=== PATIENT | female | born 1975 | race Caucasian/White ===

== ENCOUNTER 2018-02-09 08:12 | Emergency (ER) | payer BC, OTHER ==
[~2018-02-09] VITALS: Ht 172.7 cm; Wt 104.3 kg
[2018-02-09] MEDS ORDERED: DIATRIZOATE MEGL/DIATRIZOA SOD 30 ML BTL PO ONE (08:38)
[2018-02-09 08:46] LABS: BASOPHILS # (AUTO) 0.1 (0.0-0.1); BASOPHILS % 0.6 % (0.0-1.0); EOSINOPHILS # (AUTO) 0.1 (0.0-0.4); HEMATOCRIT 38.8 % (34.2-44.1); HEMOGLOBIN 13.9 g/dL (12.0-16.0); LYMPHOCYTES # (AUTO) 1.2 (1.0-3.2); LYMPHOCYTES % 13.3 % (18.0-39.1); MEAN CORPUSCULAR HEMOGLOBIN 32.4 pg (28-32); MEAN CORPUSCULAR HGB CONC 35.8 g/dL (31-35); MEAN CORPUSCULAR VOLUME 90.4 fL (81-99); MONOCYTES # (AUTO) 0.6 (0.2-0.8); MONOCYTES % 6.4 % (4.4-11.3); NEUTROPHILS % 78.5 % (38.7-80.0); PLATELET COUNT 158 x10e3/uL (140-360); RED BLOOD COUNT 4.29 x10e6/uL (3.6-5.1); RED CELL DISTRIBUTION WIDTH 13.2 % (11.7-14.4)
[2018-02-09] MEDS ORDERED: KETOROLAC TROMETHAMINE 30 MG/ML VIAL IV STA (08:47)
[2018-02-09] MEDS ORDERED: HYOSCYAMINE SULFATE 0.5 MG/ML AMP IV ONE (09:00)
[2018-02-09] MEDS ORDERED: SODIUM CHLORIDE 0.9% 1000ML 1,000 ML IV ONE (09:00)
[2018-02-09 09:09] LABS: ALANINE AMINOTRANSFERASE 44 IU/L (0-55); ALBUMIN 4.1 g/dL (3.5-5.0); ALKALINE PHOSPHATASE 43 IU/L (40-150); BLOOD UREA NITROGEN 16 mg/dL (7-26); BUN/CREATININE RATIO 21 (6-25); CARBON DIOXIDE 21 mmol/L (22-29); CHLORIDE 106 mmol/L (98-107); CREATININE, SERUM 0.77 mg/dL (0.57-1.11); EST GLOMERULAR FILTRATION RATE > 60 ML/MIN (60-); GLUCOSE 115 mg/dL (74-118); SODIUM 134 mmol/L (136-145)
[2018-02-09 09:56] LABS: BILIRUBIN,URINE NEGATIVE (NEGATIVE); COLOR,URINE YELLOW (YELLOW); KETONES,URINE NEGATIVE (NEGATIVE); LEUKOCYTE ESTERASE ,URINE NEGATIVE (NEGATIVE); NITRITE,URINE NEGATIVE (NEGATIVE); PROTEIN,URINE DIPSTICK NEGATIVE (NEGATIVE); URINE UROBILINOGEN 0.2 mg/dL (0.2 - 1)
[2018-02-09 10:15] LABS: CLARITY,URINE CLEAR (CLEAR)
[2018-02-09 10:19] LABS: BACTERIA,URINE FEW /HPF; EPITHELIAL CELLS,URINE FEW /LPF; RBC,URINE 0-5 /HPF (0-5); WBC,URINE (MAN) 0-5 /HPF (0-5)
--- NOTE | 2018-02-09 11:42 | Diagnostic Imaging Report ---
PROCEDURE: CT ABDOMEN AND PELVIS WITH CONTRAST TECHNIQUE: The abdomen and pelvis were scanned utilizing a multidetector helical scanner from the diaphragm to the lesser trochanter after the IV administration of 100 cc of Isovue 370 and the oral administration of Gastroview. Coronal and sagittal multiplanar reformations were obtained. COMPARISON: CT abdomen and pelvis 09/19/2015. INDICATIONS: LEFT LOWER QUADRANT PAIN FINDINGS: LOWER THORAX: Normal. HEPATOBILIARY: No focal hepatic lesions. No biliary ductal dilatation. SPLEEN: No splenomegaly. PANCREAS: No focal masses or ductal dilatation. ADRENALS: No adrenal nodules. KIDNEYS/URETERS: No hydronephrosis, stones, or solid mass lesions. PELVIC ORGANS/BLADDER: Normal uterus and ovaries. Normal urinary bladder. PERITONEUM / RETROPERITONEUM: No free air or fluid. LYMPH NODES: No lymphadenopathy. VESSELS: Unremarkable. GI TRACT: Multiple diverticuli are present in the descending and sigmoid colon. Short segment bowel wall thickening is present in the proximal sigmoid colon with adjacent soft tissue inflammatory changes, series 2 image 75. Normal appendix. Moderate amount of retained feces limits intraluminal evaluation of the colon. Normal small bowel and stomach. BONES AND SOFT TISSUES: Unremarkable. IMPRESSION: Acute diverticulitis of the sigmoid colon. No evidence of obstruction, perforation, or abscess formation. Dictated by: Yusef Arreaga M.D. on 02/09/2018 at 11:43 Electronically approved by: Yusef Arreaga M.D. on 02/09/2018 at 11:43
[2018-02-09] MEDS ORDERED: CIPROFLOXACIN 500 MG TAB PO ONE (11:45)
[2018-02-09] MEDS ORDERED: METRONIDAZOLE 500 MG TAB PO ONE (11:45)
[2018-02-09 12:08] VITALS: BP 113/70
[2018-02-09] MEDS ORDERED: IOPAMIDOL 370 MG/ML 200 ML INFUS..BTL INJ ONE (15:19)
[2018-02-09] MEDS ORDERED: SODIUM CHLORIDE 0.9% 50ML 50 ML ONE (15:19)
== END 2018-02-09 12:21 | disposition home or self-care (01) ==
LOC: ER 08:12
DX: R10.32 Left lower quadrant pain (principal); M54.5 Low back pain; K59.00 Constipation, unspecified; K57.32 Diverticulitis of large intestine without perforation or abscess without bleeding
CPT/HCPCS: 36415; 74177; 80053; 81001; 84702; 85025; 99284; J1885; J1980; J7030; Q9967

== ENCOUNTER 2021-09-25 18:43 | Inpatient (IN) | payer BC ==
[~2021-09-25] VITALS: Ht 170.2 cm; Wt 88.5 kg
[2021-09-25 20:00] VITALS: BP 143/92
[2021-09-25] MEDS ORDERED: ACETAMINOPHEN 325 MG TAB PO PRN (21:00)
[2021-09-25] MEDS: TRAZODONE HCL 50 MG TAB PO PRN (21:54)
[2021-09-25] MEDS: PIPERACILLIN/TAZOBACTAM 3.375 GM in SODIUM CHLORIDE 0.9% 50ML 50 ML IV SCH (21:55)
[2021-09-25] MEDS: DEXTROSE 5%/0.9% SOD CHL 1,000 ML IV SCH (21:55)
[2021-09-25 23:08] VITALS: BP 143/92
[2021-09-26] VITALS (7 sets, daily range): BP systolic 89–123; BP diastolic 42–74
[2021-09-26] MEDS ORDERED: METFORMIN HCL500 MG PO (01:36)
[2021-09-26] MEDS ORDERED: FARXIGA10 MG PO (01:36)
[2021-09-26] MEDS ORDERED: PREDNISONE10 MG PO (01:41)
[2021-09-26] MEDS ORDERED: TRAZODONE HCL50 MG PO (01:41)
[2021-09-26] MEDS ORDERED: IMURAN50 MG PO (01:41)
[2021-09-26] MEDS ORDERED: MULTI-VITAMIN1 EACH PO (01:41)
[2021-09-26 05:06] LABS: BASOPHILS % 0.7 % (0.0-1.0); EOSINOPHILS # (AUTO) 0.1 (0.0-0.4); HEMOGLOBIN 11.5 g/dL (12.0-16.0); LYMPHOCYTES # (AUTO) 1.4 (1.0-3.2); LYMPHOCYTES % 34.5 % (18.0-39.1); MEAN CORPUSCULAR HEMOGLOBIN 31.5 pg (28-32); MEAN CORPUSCULAR HGB CONC 33.8 g/dL (31-35); MEAN CORPUSCULAR VOLUME 93.2 fL (81-99); MONOCYTES # (AUTO) 0.3 (0.2-0.8); MONOCYTES % 8.3 % (4.4-11.3); NEUTROPHILS # (AUTO) 2.2 (2.1-6.9); PLATELET COUNT 134 x10e3/uL (140-360); RED BLOOD COUNT 3.65 x10e6/uL (3.6-5.1)
[2021-09-26 05:33] LABS: ANION GAP 11.9 mmol/L (8-16); CALCIUM 8.3 mg/dL (8.4-10.2); CREATININE, SERUM 0.64 mg/dL (0.57-1.11); POTASSIUM 3.9 mmol/L (3.5-5.1)
[2021-09-26] MEDS: PIPERACILLIN/TAZOBACTAM 3.375 GM in SODIUM CHLORIDE 0.9% 50ML 50 ML IV SCH ×6 (06:05→23:33)
[2021-09-26] MEDS ORDERED: TRAZODONE HCL 50 MG TAB PO PRN (08:30)
[2021-09-26] MEDS: AZATHIOPRINE 50 MG TAB PO SCH (09:00)
[2021-09-26] MEDS: PREDNISONE 10 MG TAB PO SCH (09:00)
[2021-09-26] MEDS: MULTIVITAMINS/MINERALS TAB PO SCH (09:00)
[2021-09-26] MEDS: DEXTROSE 5%/0.9% SOD CHL 1,000 ML IV SCH ×2 (09:30→19:57)
[2021-09-26] MEDS: Morphine 2mg Syringe 2 MG/ML SYR IV PRN ×2 (14:51→20:34)
[2021-09-26] MEDS: METRONIDAZOLE 500MG/NS 100ML 100 ML IV SCH (21:43)
[2021-09-26] MEDS ORDERED: SODIUM CHLORIDE 0.9% 250ML 250 ML ONE (21:58)
[2021-09-27] VITALS (8 sets, daily range): BP systolic 96–122; BP diastolic 60–78
[2021-09-27 02:19] LABS: % IRON SATURATION 36 % (15-50); IRON 84 ug/dL (50-170); TOTAL IRON BINDING CAPACITY 232 ug/dL (261-478); TRANSFERRIN 166 mg/dL (180-382)
[2021-09-27] MEDS: METRONIDAZOLE 500MG/NS 100ML 100 ML IV SCH (04:51)
[2021-09-27 04:56] LABS: BASOPHILS % 0.6 % (0.0-1.0); EOSINOPHILS # (AUTO) 0.1 (0.0-0.4); EOSINOPHILS % 1.2 % (0.0-6.0); HEMATOCRIT 32.1 % (34.2-44.1); HEMOGLOBIN 10.8 g/dL (12.0-16.0); LYMPHOCYTES # (AUTO) 1.1 (1.0-3.2); MEAN CORPUSCULAR HEMOGLOBIN 31.3 pg (28-32); MEAN CORPUSCULAR HGB CONC 33.6 g/dL (31-35); MONOCYTES # (AUTO) 0.4 (0.2-0.8); MONOCYTES % 7.7 % (4.4-11.3); NEUTROPHILS # (AUTO) 3.2 (2.1-6.9); NEUTROPHILS % 67.3 % (38.7-80.0); PLATELET COUNT 141 x10e3/uL (140-360); RED BLOOD COUNT 3.45 x10e6/uL (3.6-5.1); RED CELL DISTRIBUTION WIDTH 13.4 % (11.7-14.4)
[2021-09-27] MEDS: DEXTROSE 5%/0.9% SOD CHL 1,000 ML IV SCH ×2 (04:58→12:27)
[2021-09-27 05:26] LABS: ALBUMIN 3.2 g/dL (3.5-5.0); ANION GAP 9.5 mmol/L (8-16); CALCIUM 8.3 mg/dL (8.4-10.2); CREATININE, SERUM 0.66 mg/dL (0.57-1.11); POTASSIUM 3.5 mmol/L (3.5-5.1)
[2021-09-27] MEDS: PIPERACILLIN/TAZOBACTAM 3.375 GM in SODIUM CHLORIDE 0.9% 50ML 50 ML IV SCH (06:05)
[2021-09-27] MEDS: MULTIVITAMINS/MINERALS TAB PO SCH (08:56)
[2021-09-27] MEDS: AZATHIOPRINE 50 MG TAB PO SCH (08:56)
[2021-09-27] MEDS: PREDNISONE 10 MG TAB PO SCH (08:56)
[2021-09-27] MEDS: AMPICILLIN SOD/SULBACTAM 3GM 100 ML IV SCH ×2 (12:27→16:52)
[2021-09-27] MEDS: Morphine 2mg Syringe 2 MG/ML SYR IV PRN (15:46)
[2021-09-27] MEDS: TRAZODONE HCL 50 MG TAB PO PRN (22:19)
[2021-09-28] VITALS (7 sets, daily range): BP systolic 98–122; BP diastolic 58–79
[2021-09-28] MEDS: DEXTROSE 5%/0.9% SOD CHL 1,000 ML IV SCH ×4 (01:30→20:48)
[2021-09-28] MEDS: AMPICILLIN SOD/SULBACTAM 3GM 100 ML IV SCH ×4 (01:30→18:17)
[2021-09-28] MEDS: MULTIVITAMINS/MINERALS TAB PO SCH (09:13)
[2021-09-28] MEDS: PREDNISONE 10 MG TAB PO SCH (09:13)
[2021-09-28] MEDS: AZATHIOPRINE 50 MG TAB PO SCH (09:13)
[2021-09-28] MEDS: CYANOCOBALAMIN INJ 1,000 MCG/ML VIAL IM SCH (09:13)
[2021-09-28] MEDS: CLINDAMYCIN 600MG / 50ML 50 ML IV SCH ×2 (13:54→21:36)
[2021-09-28] MEDS ORDERED: SODIUM CHLORIDE 0.9% 250ML 250 ML ONE (21:35)
[2021-09-28] MEDS ORDERED: ONDANSETRON HCL INJ 2MG/ML 2ML 2 MG/ML VIAL IV PRN (21:45)
[2021-09-29] VITALS (9 sets, daily range): BP systolic 96–143; BP diastolic 64–83
[2021-09-29] MEDS: Morphine 2mg Syringe 2 MG/ML SYR IV PRN (01:53)
[2021-09-29] MEDS: DEXTROSE 5%/0.9% SOD CHL 1,000 ML IV SCH ×3 (04:51→20:56)
[2021-09-29] MEDS: CLINDAMYCIN 600MG / 50ML 50 ML IV SCH ×3 (05:48→22:02)
[2021-09-29] MEDS: AMPICILLIN SOD/SULBACTAM 3GM 100 ML IV SCH ×4 (06:20→16:43)
[2021-09-29] MEDS: AZATHIOPRINE 50 MG TAB PO SCH (08:55)
[2021-09-29] MEDS: PREDNISONE 10 MG TAB PO SCH (08:55)
[2021-09-29] MEDS: MULTIVITAMINS/MINERALS TAB PO SCH (08:55)
[2021-09-29] MEDS: CYANOCOBALAMIN INJ 1,000 MCG/ML VIAL IM SCH (08:57)
[2021-09-30] VITALS (7 sets, daily range): BP systolic 101–157; BP diastolic 62–86
[2021-09-30] MEDS: DEXTROSE 5%/0.9% SOD CHL 1,000 ML IV SCH ×2 (03:33→13:25)
[2021-09-30] MEDS: CLINDAMYCIN 600MG / 50ML 50 ML IV SCH (05:25)
[2021-09-30] MEDS: AMPICILLIN SOD/SULBACTAM 3GM 100 ML IV SCH ×3 (06:30→12:00)
[2021-09-30] MEDS ORDERED: ALBUTEROL SULF 0.083% NEB SOLN 3 ML NEB NEB PRN (09:30)
[2021-09-30] MEDS ORDERED: CHOLESTYRAMINE 4 GM PACKET PO PRN (09:30)
[2021-09-30] MEDS: CYANOCOBALAMIN INJ 1,000 MCG/ML VIAL IM SCH (09:39)
[2021-09-30] MEDS: PREDNISONE 10 MG TAB PO SCH (09:40)
[2021-09-30] MEDS: AZATHIOPRINE 50 MG TAB PO SCH (09:40)
[2021-09-30] MEDS: MULTIVITAMINS/MINERALS TAB PO SCH (09:40)
[2021-09-30] MEDS ORDERED: LOPERAMIDE HCL 2 MG CAP PO PRN (09:45)
[2021-09-30 10:35] LABS: ANION GAP 11.2 mmol/L (8-16); CARBON DIOXIDE 23 mmol/L (22-29); CHLORIDE 112 mmol/L (98-107); CREATININE, SERUM 0.65 mg/dL (0.57-1.11); EST GLOMERULAR FILTRATION RATE 98 ML/MIN (60-); GLUCOSE 119 mg/dL (74-118); POTASSIUM 3.2 mmol/L (3.5-5.1); SODIUM 143 mmol/L (136-145)
[2021-09-30 10:39] LABS: BLOOD UREA NITROGEN < 5 mg/dL (7-26); BUN/CREATININE RATIO 8 (6-25)
[2021-09-30] MEDS ORDERED: BISMUTH SUBSALICYLATE 262 MG TAB PO PRN (15:00)
[2021-09-30] MEDS ORDERED: SODIUM CHLORIDE 0.9% 50ML 50 ML ONE (16:13)
[2021-09-30] MEDS ORDERED: IOPAMIDOL 370 MG/ML 200 ML INFUS..BTL INJ ONE (16:13)
[2021-09-30] MEDS: ENOXAPARIN SOD INJ 40 MG/0.4 ML SYR SC SCH (16:36)
[2021-09-30] MEDS: MEROPENEM 1 GM in SODIUM CHLORIDE 0.9% 100 ML IV SCH (17:32)
[2021-09-30] MEDS: FUROSEMIDE INJ 10 MG/ML 2 ML VIAL IV SCH (21:02)
[2021-10-01] VITALS (8 sets, daily range): BP systolic 116–139; BP diastolic 77–101
[2021-10-01] MEDS: MEROPENEM 1 GM in SODIUM CHLORIDE 0.9% 100 ML IV SCH ×3 (02:14→20:01)
[2021-10-01 05:46] LABS: ANION GAP 11.8 mmol/L (8-16); CALCIUM 8.3 mg/dL (8.4-10.2); CARBON DIOXIDE 24 mmol/L (22-29); CHLORIDE 110 mmol/L (98-107); CREATININE, SERUM 0.62 mg/dL (0.57-1.11); EST GLOMERULAR FILTRATION RATE 104 ML/MIN (60-); GLUCOSE 76 mg/dL (74-118); MAGNESIUM 1.6 MG/DL (1.3-2.1); SODIUM 143 mmol/L (136-145)
[2021-10-01 06:09] LABS: BLOOD UREA NITROGEN < 2 mg/dL (7-26); BUN/CREATININE RATIO 3 (6-25); POTASSIUM 2.8 mmol/L (3.5-5.1)
[2021-10-01] MEDS ORDERED: POTASSIUM CHLORIDE 20 MEQ TAB CR PO ONE ×2 (07:00→07:30)
[2021-10-01] MEDS: CYANOCOBALAMIN INJ 1,000 MCG/ML VIAL IM SCH (08:01)
[2021-10-01] MEDS: FUROSEMIDE INJ 10 MG/ML 2 ML VIAL IV SCH (08:01)
[2021-10-01] MEDS: MULTIVITAMINS/MINERALS TAB PO SCH (08:02)
[2021-10-01] MEDS: AZATHIOPRINE 50 MG TAB PO SCH (08:02)
[2021-10-01] MEDS: PREDNISONE 10 MG TAB PO SCH (08:02)
[2021-10-01] MEDS ORDERED: ONDANSETRON HCL 4 MG ORAL DISINTEGRATING TAB PO PRN (09:30)
[2021-10-01] MEDS: ENOXAPARIN SOD INJ 40 MG/0.4 ML SYR SC SCH (18:28)
[2021-10-02 00:06] VITALS: BP 121/76
[2021-10-02 00:09] VITALS: BP 121/76
[2021-10-02] MEDS: MEROPENEM 1 GM in SODIUM CHLORIDE 0.9% 100 ML IV SCH ×2 (02:07→08:49)
[2021-10-02 06:09] VITALS: BP 136/85
[2021-10-02 07:24] VITALS: BP 139/81
[2021-10-02] MEDS: CYANOCOBALAMIN INJ 1,000 MCG/ML VIAL IM SCH (08:48)
[2021-10-02] MEDS: PREDNISONE 10 MG TAB PO SCH (08:48)
[2021-10-02] MEDS: MULTIVITAMINS/MINERALS TAB PO SCH (08:48)
[2021-10-02] MEDS: AZATHIOPRINE 50 MG TAB PO SCH (08:49)
[2021-10-02 09:59] VITALS: BP 139/81
[2021-10-02 11:28] VITALS: BP 135/83
[2021-10-03] MEDS ORDERED: (Dapagliflozin Propanediol (Farxiga) 10 MG) PO SCH (09:00)
[2021-10-03] MEDS ORDERED: METFORMIN HCL 500 MG TAB PO SCH (09:00)
== END 2021-10-02 15:09 | disposition home or self-care (01) | DRG 391 ==
LOC: MED/SURG2 19:56
PROVIDERS: ADMIT Internal Medicine; ATTEND Internal Medicine
PROC: 02HV33Z Insertion of Infusion Device into Superior Vena Cava, Percutaneous Approach (ICD-10-PCS; principal; 2021-09-25)
DX: K57.80 Diverticulitis of intestine, part unspecified, with perforation and abscess without bleeding (principal); I50.31 Acute diastolic (congestive) heart failure; K83.09 Other cholangitis; M32.9 Systemic lupus erythematosus, unspecified; K75.4 Autoimmune hepatitis; Z20.822 Contact with and (suspected) exposure to COVID-19; I11.0 Hypertensive heart disease with heart failure; E11.9 Type 2 diabetes mellitus without complications; E11.65 Type 2 diabetes mellitus with hyperglycemia; R19.7 Diarrhea, unspecified
CPT/HCPCS: 36415; 36568; 71260; 80048; 80053; 82607; 82746; 82948; 83540; 83735; 84132; 84466; 84484; 85025; 85045; 87493; 93005; 93306; 94799; 96361; J0295; J1650; J1940; J2185; J2270; J2405; J2543; J3420; J7042; J7050; J7512; Q9967; U0002

== ENCOUNTER → 2021-10-14 | Outpatient (CLI) | payer BC ==
[~2021-10-14] MED LIST: FARXIGA10 MG PO; IMURAN50 MG PO; METFORMIN HCL500 MG PO; MULTI-VITAMIN1 EACH PO; PREDNISONE10 MG PO; TRAZODONE HCL50 MG PO
== END ==
LOC: DX 11:58
PROVIDERS: ATTEND Internal Medicine Infectious Disease
DX: K57.92 Diverticulitis of intestine, part unspecified, without perforation or abscess without bleeding (principal)
CPT/HCPCS: 36569; 71045

== ENCOUNTER 2022-02-16 08:30 | Inpatient (IN) | payer BC, OTHER ==
[~2022-02-16] VITALS: Ht 170.2 cm; Wt 91.2 kg
[2022-02-16] MEDS ORDERED: ONDANSETRON HCL INJ 2MG/ML 2ML 2 MG/ML VIAL IV STA (08:34)
[2022-02-16] MEDS ORDERED: SODIUM CHLORIDE 0.9% 1000ML 1,000 ML IV STA (08:34)
[2022-02-16] MEDS ORDERED: Morphine 4mg Syringe 4 MG/ML INJ IV ONE (08:45)
[2022-02-16 08:59] LABS: BASOPHILS % 0.4 % (0.0-1.0); EOSINOPHILS # (AUTO) 0.1 (0.0-0.4); EOSINOPHILS % 1.1 % (0.0-6.0); HEMATOCRIT 41.1 % (34.2-44.1); HEMOGLOBIN 14.1 g/dL (12.0-16.0); LYMPHOCYTES # (AUTO) 1.1 (1.0-3.2); LYMPHOCYTES % 12.5 % (18.0-39.1); MEAN CORPUSCULAR HEMOGLOBIN 30.9 pg (28-32); MEAN CORPUSCULAR HGB CONC 34.3 g/dL (31-35); MEAN CORPUSCULAR VOLUME 90.1 fL (81-99); MONOCYTES # (AUTO) 0.8 (0.2-0.8); MONOCYTES % 8.5 % (4.4-11.3); NEUTROPHILS # (AUTO) 6.9 (2.1-6.9); NEUTROPHILS % 77.3 % (38.7-80.0); PLATELET COUNT 155 x10e3/uL (140-360); RED BLOOD COUNT 4.56 x10e6/uL (3.6-5.1); RED CELL DISTRIBUTION WIDTH 13.3 % (11.7-14.4)
[2022-02-16 09:07] LABS: CLARITY,URINE CLEAR (CLEAR); COLOR,URINE YELLOW (YELLOW); KETONES,URINE NEGATIVE (NEGATIVE); LEUKOCYTE ESTERASE ,URINE NEGATIVE (NEGATIVE); NITRITE,URINE NEGATIVE (NEGATIVE); PROTEIN,URINE DIPSTICK NEGATIVE (NEGATIVE); URINE UROBILINOGEN 0.2 mg/dL (0.2 - 1)
[2022-02-16 09:15] LABS: EPITHELIAL CELLS,URINE RARE /LPF; RBC,URINE 0-5 /HPF (0-5); WBC,URINE (MAN) 0-5 /HPF (0-5)
[2022-02-16 09:19] LABS: ALBUMIN 4.2 g/dL (3.5-5.0); ANION GAP 11.7 mmol/L (8-16); CALCIUM 9.2 mg/dL (8.4-10.2); CREATININE, SERUM 0.79 mg/dL (0.57-1.11); POTASSIUM 3.7 mmol/L (3.5-5.1)
[2022-02-16] MEDS ORDERED: IOPAMIDOL 370 MG/ML 200 ML INFUS..BTL INJ ONE (09:49)
[2022-02-16] MEDS ORDERED: SODIUM CHLORIDE 0.9% 50ML 50 ML ONE (09:49)
[2022-02-16] MEDS ORDERED: Morphine 4mg Syringe 4 MG/ML INJ IV PRN (10:45)
[2022-02-16] MEDS: SODIUM CHLORIDE 0.9% 1000ML 1,000 ML IV SCH ×2 (11:16→20:04)
[2022-02-16] MEDS: ONDANSETRON HCL INJ 2MG/ML 2ML 2 MG/ML VIAL IV PRN ×3 (11:16→20:51)
[2022-02-16] MEDS ORDERED: SODIUM CHLORIDE 0.9% IV ONE (11:30)
[2022-02-16] MEDS ORDERED: MEROPENEM IV ONE (11:30)
[2022-02-16] MEDS ORDERED: MEROPENEM 1 GM VIAL ONE (11:51)
[2022-02-16] MEDS ORDERED: SODIUM CHLORIDE 0.9% 100 ML ONE (11:53)
[2022-02-16] MEDS ORDERED: PROBIOTIC & AC1 EACH PO (12:31)
[2022-02-16] MEDS: HYDROMORPHONE 1MG/1ML INJ IV PRN ×3 (12:37→20:51)
[2022-02-16] MEDS ORDERED: TRAZODONE HCL 50 MG TAB PO PRN (12:45)
[2022-02-16 15:35] VITALS: BP 97/55
[2022-02-16] MEDS: METRONIDAZOLE 500MG/NS 100ML 100 ML IV SCH ×2 (17:03→23:36)
[2022-02-16 20:00] VITALS: BP 116/75
[2022-02-16] MEDS: CEFEPIME 1 GM in SODIUM CHLORIDE 0.9% 50ML 50 ML IV SCH (20:04)
[2022-02-16 21:01] VITALS: BP 116/75
[2022-02-17] VITALS (9 sets, daily range): BP systolic 99–110; BP diastolic 50–77
[2022-02-17] MEDS: ONDANSETRON HCL INJ 2MG/ML 2ML 2 MG/ML VIAL IV PRN ×3 (00:54→09:00)
[2022-02-17] MEDS: HYDROMORPHONE 1MG/1ML INJ IV PRN ×6 (00:54→22:17)
[2022-02-17] MEDS: ACETAMINOPHEN 325 MG TAB PO PRN (00:55)
[2022-02-17] MEDS: SODIUM CHLORIDE 0.9% 1000ML 1,000 ML IV SCH ×3 (03:56→18:24)
[2022-02-17] MEDS: METRONIDAZOLE 500MG/NS 100ML 100 ML IV SCH ×4 (05:28→23:50)
[2022-02-17 05:42] LABS: BASOPHILS % 0.4 % (0.0-1.0); EOSINOPHILS # (AUTO) 0.1 (0.0-0.4); EOSINOPHILS % 0.8 % (0.0-6.0); HEMATOCRIT 34.3 % (34.2-44.1); HEMOGLOBIN 11.4 g/dL (12.0-16.0); LYMPHOCYTES # (AUTO) 1.2 (1.0-3.2); LYMPHOCYTES % 15.7 % (18.0-39.1); MEAN CORPUSCULAR HEMOGLOBIN 31.1 pg (28-32); MEAN CORPUSCULAR HGB CONC 33.2 g/dL (31-35); MEAN CORPUSCULAR VOLUME 93.5 fL (81-99); MONOCYTES # (AUTO) 0.6 (0.2-0.8); MONOCYTES % 7.9 % (4.4-11.3); NEUTROPHILS # (AUTO) 5.5 (2.1-6.9); NEUTROPHILS % 74.9 % (38.7-80.0); PLATELET COUNT 117 x10e3/uL (140-360); RED BLOOD COUNT 3.67 x10e6/uL (3.6-5.1); RED CELL DISTRIBUTION WIDTH 13.3 % (11.7-14.4)
[2022-02-17 06:11] LABS: ALBUMIN 3.2 g/dL (3.5-5.0); ANION GAP 10.6 mmol/L (8-16); CALCIUM 8.2 mg/dL (8.4-10.2); CREATININE, SERUM 0.69 mg/dL (0.57-1.11); POTASSIUM 3.6 mmol/L (3.5-5.1)
[2022-02-17] MEDS: CEFEPIME 1 GM in SODIUM CHLORIDE 0.9% 50ML 50 ML IV SCH ×2 (09:00→21:13)
[2022-02-17] MEDS: PREDNISONE 5 MG TAB PO SCH (11:11)
[2022-02-17] MEDS: AZATHIOPRINE 50 MG TAB PO SCH (11:11)
[2022-02-17] MEDS: MULTIVITAMINS/MINERALS TAB PO SCH (11:11)
[2022-02-17] MEDS: (Dapagliflozin Propanediol (Farxiga) 10 MG) PO SCH (11:11)
[2022-02-18] VITALS (8 sets, daily range): BP systolic 110–112; BP diastolic 64–75
[2022-02-18] MEDS: ONDANSETRON HCL INJ 2MG/ML 2ML 2 MG/ML VIAL IV PRN ×4 (03:05→22:59)
[2022-02-18] MEDS: HYDROMORPHONE 1MG/1ML INJ IV PRN ×5 (03:05→22:59)
[2022-02-18] MEDS: ACETAMINOPHEN 325 MG TAB PO PRN (04:57)
[2022-02-18 05:02] LABS: BASOPHILS % 0.4 % (0.0-1.0); EOSINOPHILS % 0.4 % (0.0-6.0); HEMATOCRIT 30.1 % (34.2-44.1); HEMOGLOBIN 10.2 g/dL (12.0-16.0); LYMPHOCYTES # (AUTO) 1.1 (1.0-3.2); LYMPHOCYTES % 15.5 % (18.0-39.1); MEAN CORPUSCULAR HGB CONC 33.9 g/dL (31-35); MEAN CORPUSCULAR VOLUME 91.5 fL (81-99); MONOCYTES # (AUTO) 0.5 (0.2-0.8); NEUTROPHILS # (AUTO) 5.3 (2.1-6.9); NEUTROPHILS % 76.4 % (38.7-80.0); PLATELET COUNT 130 x10e3/uL (140-360); RED BLOOD COUNT 3.29 x10e6/uL (3.6-5.1); RED CELL DISTRIBUTION WIDTH 13.1 % (11.7-14.4)
[2022-02-18 05:22] LABS: ALBUMIN/GLOBULIN RATIO 0.9 (0.8-2.0); ANION GAP 10.8 mmol/L (8-16); CREATININE, SERUM 0.66 mg/dL (0.57-1.11); POTASSIUM 3.8 mmol/L (3.5-5.1)
[2022-02-18] MEDS: METRONIDAZOLE 500MG/NS 100ML 100 ML IV SCH ×4 (06:35→23:59)
[2022-02-18] MEDS: SODIUM CHLORIDE 0.9% 1000ML 1,000 ML IV SCH ×2 (06:35→16:59)
[2022-02-18] MEDS: (Dapagliflozin Propanediol (Farxiga) 10 MG) PO SCH (09:00)
[2022-02-18] MEDS: AZATHIOPRINE 50 MG TAB PO SCH (09:08)
[2022-02-18] MEDS: CEFEPIME 1 GM in SODIUM CHLORIDE 0.9% 50ML 50 ML IV SCH ×2 (09:08→21:52)
[2022-02-18] MEDS: PREDNISONE 5 MG TAB PO SCH (09:09)
[2022-02-18] MEDS: MULTIVITAMINS/MINERALS TAB PO SCH (09:09)
[2022-02-18] MEDS: DOCUSATE SODIUM 100 MG CAP PO SCH (18:19)
[2022-02-19 01:11] LABS: % IRON SATURATION 19 % (15-50); IRON 37 ug/dL (50-170); TOTAL IRON BINDING CAPACITY 195 ug/dL (261-478); TRANSFERRIN 139 mg/dL (180-382)
[2022-02-19] MEDS: SODIUM CHLORIDE 0.9% 1000ML 1,000 ML IV SCH ×3 (04:01→22:00)
[2022-02-19 04:30] VITALS: BP 122/79
[2022-02-19 04:56] LABS: BASOPHILS % 0.5 % (0.0-1.0); EOSINOPHILS # (AUTO) 0.1 (0.0-0.4); EOSINOPHILS % 1.8 % (0.0-6.0); HEMATOCRIT 30.3 % (34.2-44.1); HEMOGLOBIN 10.2 g/dL (12.0-16.0); LYMPHOCYTES # (AUTO) 1.2 (1.0-3.2); LYMPHOCYTES % 20.8 % (18.0-39.1); MEAN CORPUSCULAR HGB CONC 33.7 g/dL (31-35); MEAN CORPUSCULAR VOLUME 92.1 fL (81-99); MONOCYTES # (AUTO) 0.4 (0.2-0.8); MONOCYTES % 7.5 % (4.4-11.3); NEUTROPHILS # (AUTO) 3.9 (2.1-6.9); NEUTROPHILS % 69.2 % (38.7-80.0); PLATELET COUNT 135 x10e3/uL (140-360); RED BLOOD COUNT 3.29 x10e6/uL (3.6-5.1); RED CELL DISTRIBUTION WIDTH 13.1 % (11.7-14.4)
[2022-02-19] MEDS: HYDROMORPHONE 1MG/1ML INJ IV PRN ×3 (05:19→19:51)
[2022-02-19] MEDS: ONDANSETRON HCL INJ 2MG/ML 2ML 2 MG/ML VIAL IV PRN ×3 (05:19→19:51)
[2022-02-19 05:25] LABS: ALANINE AMINOTRANSFERASE 14 IU/L (0-55); ALBUMIN 3.1 g/dL (3.5-5.0); ALBUMIN/GLOBULIN RATIO 0.9 (0.8-2.0); ALKALINE PHOSPHATASE 37 IU/L (40-150); ANION GAP 8.6 mmol/L (8-16); BLOOD UREA NITROGEN < 5 mg/dL (7-26); CARBON DIOXIDE 26 mmol/L (22-29); CHLORIDE 109 mmol/L (98-107); CREATININE, SERUM 0.64 mg/dL (0.57-1.11); EST GLOMERULAR FILTRATION RATE 100 ML/MIN (60-); GLUCOSE 94 mg/dL (74-118); POTASSIUM 3.6 mmol/L (3.5-5.1); SODIUM 140 mmol/L (136-145)
[2022-02-19 05:27] LABS: BUN/CREATININE RATIO 8 (6-25)
[2022-02-19] MEDS: METRONIDAZOLE 500MG/NS 100ML 100 ML IV SCH ×4 (05:29→23:59)
[2022-02-19] MEDS: ACETAMINOPHEN 325 MG TAB PO PRN (05:29)
[2022-02-19] MEDS: AZATHIOPRINE 50 MG TAB PO SCH (08:42)
[2022-02-19] MEDS: DOCUSATE SODIUM 100 MG CAP PO SCH ×2 (08:42→17:00)
[2022-02-19] MEDS: CEFEPIME 1 GM in SODIUM CHLORIDE 0.9% 50ML 50 ML IV SCH ×2 (08:42→22:00)
[2022-02-19] MEDS: PREDNISONE 5 MG TAB PO SCH (08:42)
[2022-02-19] MEDS: MULTIVITAMINS/MINERALS TAB PO SCH (08:42)
[2022-02-19] MEDS: (Dapagliflozin Propanediol (Farxiga) 10 MG) PO SCH (09:00)
[2022-02-19 09:19] VITALS: BP 122/79
[2022-02-19] MEDS ORDERED: SODIUM CHLORIDE 0.9% 50ML 50 ML ONE (14:36)
[2022-02-19] MEDS ORDERED: IOPAMIDOL 370 MG/ML 200 ML INFUS..BTL INJ ONE (14:36)
[2022-02-19] MEDS ORDERED: DIATRIZOATE MEGL/DIATRIZOA SOD 30 ML BTL PO ONE (14:36)
[2022-02-19 20:00] VITALS: BP 117/80
[2022-02-19 21:00] VITALS: BP 117/80
[2022-02-20] VITALS (8 sets, daily range): BP systolic 102–124; BP diastolic 66–87
[2022-02-20] MEDS: ONDANSETRON HCL INJ 2MG/ML 2ML 2 MG/ML VIAL IV PRN ×5 (01:00→21:00)
[2022-02-20] MEDS: HYDROMORPHONE 1MG/1ML INJ IV PRN ×5 (01:00→21:00)
[2022-02-20] MEDS: ACETAMINOPHEN 325 MG TAB PO PRN (04:35)
[2022-02-20 04:58] LABS: BASOPHILS % 0.6 % (0.0-1.0); EOSINOPHILS # (AUTO) 0.1 (0.0-0.4); HEMATOCRIT 29.7 % (34.2-44.1); LYMPHOCYTES # (AUTO) 0.8 (1.0-3.2); LYMPHOCYTES % 16.3 % (18.0-39.1); MEAN CORPUSCULAR HEMOGLOBIN 30.9 pg (28-32); MEAN CORPUSCULAR HGB CONC 33.7 g/dL (31-35); MEAN CORPUSCULAR VOLUME 91.7 fL (81-99); MONOCYTES # (AUTO) 0.4 (0.2-0.8); MONOCYTES % 7.6 % (4.4-11.3); NEUTROPHILS # (AUTO) 3.7 (2.1-6.9); NEUTROPHILS % 73.5 % (38.7-80.0); PLATELET COUNT 127 x10e3/uL (140-360); RED BLOOD COUNT 3.24 x10e6/uL (3.6-5.1); RED CELL DISTRIBUTION WIDTH 12.9 % (11.7-14.4)
[2022-02-20 05:18] LABS: ALANINE AMINOTRANSFERASE 13 IU/L (0-55); ALBUMIN 2.9 g/dL (3.5-5.0); ALBUMIN/GLOBULIN RATIO 0.9 (0.8-2.0); ALKALINE PHOSPHATASE 33 IU/L (40-150); ANION GAP 10.3 mmol/L (8-16); BLOOD UREA NITROGEN < 5 mg/dL (7-26); BUN/CREATININE RATIO 8 (6-25); CARBON DIOXIDE 25 mmol/L (22-29); CHLORIDE 109 mmol/L (98-107); CREATININE, SERUM 0.59 mg/dL (0.57-1.11); EST GLOMERULAR FILTRATION RATE 110 ML/MIN (60-); GLUCOSE 84 mg/dL (74-118); POTASSIUM 3.3 mmol/L (3.5-5.1); SODIUM 141 mmol/L (136-145)
[2022-02-20] MEDS: METRONIDAZOLE 500MG/NS 100ML 100 ML IV SCH ×4 (05:44→23:55)
[2022-02-20] MEDS: (Dapagliflozin Propanediol (Farxiga) 10 MG) PO SCH (08:38)
[2022-02-20] MEDS: CEFEPIME 1 GM in SODIUM CHLORIDE 0.9% 50ML 50 ML IV SCH ×2 (08:38→21:00)
[2022-02-20] MEDS: AZATHIOPRINE 50 MG TAB PO SCH (08:39)
[2022-02-20] MEDS: PREDNISONE 5 MG TAB PO SCH (08:39)
[2022-02-20] MEDS: MULTIVITAMINS/MINERALS TAB PO SCH (08:39)
[2022-02-20] MEDS: DOCUSATE SODIUM 100 MG CAP PO SCH ×2 (08:44→17:00)
[2022-02-20] MEDS ORDERED: POTASSIUM CHLORIDE 20 MEQ TAB CR PO ONE (14:00)
[2022-02-20] MEDS: SODIUM CHLORIDE 0.9% 1000ML 1,000 ML IV SCH (16:30)
[2022-02-21] VITALS (8 sets, daily range): BP systolic 104–138; BP diastolic 64–86
[2022-02-21 05:00] LABS: BASOPHILS % 0.7 % (0.0-1.0); EOSINOPHILS # (AUTO) 0.1 (0.0-0.4); EOSINOPHILS % 2.8 % (0.0-6.0); HEMATOCRIT 31.2 % (34.2-44.1); HEMOGLOBIN 10.6 g/dL (12.0-16.0); LYMPHOCYTES # (AUTO) 1.1 (1.0-3.2); LYMPHOCYTES % 25.8 % (18.0-39.1); MEAN CORPUSCULAR VOLUME 91.2 fL (81-99); MONOCYTES # (AUTO) 0.3 (0.2-0.8); MONOCYTES % 7.6 % (4.4-11.3); NEUTROPHILS # (AUTO) 2.7 (2.1-6.9); NEUTROPHILS % 62.6 % (38.7-80.0); PLATELET COUNT 150 x10e3/uL (140-360); RED BLOOD COUNT 3.42 x10e6/uL (3.6-5.1); RED CELL DISTRIBUTION WIDTH 12.8 % (11.7-14.4)
[2022-02-21 05:23] LABS: ANION GAP 11.5 mmol/L (8-16); BLOOD UREA NITROGEN < 5 mg/dL (7-26); CALCIUM 8.3 mg/dL (8.4-10.2); CARBON DIOXIDE 26 mmol/L (22-29); CHLORIDE 108 mmol/L (98-107); EST GLOMERULAR FILTRATION RATE 108 ML/MIN (60-); GLUCOSE 80 mg/dL (74-118); MAGNESIUM 1.8 MG/DL (1.3-2.1); POTASSIUM 3.5 mmol/L (3.5-5.1); SODIUM 142 mmol/L (136-145)
[2022-02-21 05:36] LABS: BUN/CREATININE RATIO 8 (6-25)
[2022-02-21 05:43] LABS: ALBUMIN 3.1 g/dL (3.5-5.0); BILIRUBIN,DIRECT 0.3 mg/dL (0.0-0.5)
[2022-02-21] MEDS: METRONIDAZOLE 500MG/NS 100ML 100 ML IV SCH ×3 (06:15→16:36)
[2022-02-21 06:58] LABS: EOSINOPHILS % (MANUAL) 2 % (0-7); LYMPHOCYTES % (MANUAL) 27 % (19-48); MONOCYTES % (MANUAL) 13 % (3.4-9.0); NEUTROPHILS % (MANUAL) 58 % (40-74); PLATELET ESTIMATE ADEQUATE; PLATELET MORPHOLOGY COMMENT NORMAL; RBC MORPHOLOGY COMMENT NORMAL
[2022-02-21] MEDS: DOCUSATE SODIUM 100 MG CAP PO SCH ×2 (09:00→16:13)
[2022-02-21] MEDS: (Dapagliflozin Propanediol (Farxiga) 10 MG) PO SCH (09:00)
[2022-02-21] MEDS: MULTIVITAMINS/MINERALS TAB PO SCH (09:21)
[2022-02-21] MEDS: CEFEPIME 1 GM in SODIUM CHLORIDE 0.9% 50ML 50 ML IV SCH ×2 (09:21→21:00)
[2022-02-21] MEDS: AZATHIOPRINE 50 MG TAB PO SCH (09:21)
[2022-02-21] MEDS: PREDNISONE 5 MG TAB PO SCH (09:21)
[2022-02-21] MEDS ORDERED: HYDROMORPHONE 1MG/1ML INJ IV PRN (12:15)
[2022-02-21] MEDS: SODIUM CHLORIDE 0.9% 1000ML 1,000 ML IV SCH (16:36)
[2022-02-22] VITALS (7 sets, daily range): BP systolic 103–145; BP diastolic 68–89
[2022-02-22] MEDS ORDERED: CYANOCOBALAMIN INJ 1,000 MCG/ML VIAL IM ONE (00:45)
[2022-02-22] MEDS: METRONIDAZOLE 500MG/NS 100ML 100 ML IV SCH ×5 (06:00→23:59)
[2022-02-22 07:04] LABS: BASOPHILS % 0.7 % (0.0-1.0); EOSINOPHILS # (AUTO) 0.1 (0.0-0.4); EOSINOPHILS % 2.4 % (0.0-6.0); HEMATOCRIT 34.2 % (34.2-44.1); HEMOGLOBIN 11.5 g/dL (12.0-16.0); LYMPHOCYTES # (AUTO) 1.3 (1.0-3.2); LYMPHOCYTES % 32.3 % (18.0-39.1); MEAN CORPUSCULAR HGB CONC 33.6 g/dL (31-35); MEAN CORPUSCULAR VOLUME 92.2 fL (81-99); MONOCYTES # (AUTO) 0.3 (0.2-0.8); NEUTROPHILS # (AUTO) 2.4 (2.1-6.9); NEUTROPHILS % 57.4 % (38.7-80.0); PLATELET COUNT 132 x10e3/uL (140-360); RED BLOOD COUNT 3.71 x10e6/uL (3.6-5.1); RED CELL DISTRIBUTION WIDTH 13.1 % (11.7-14.4)
[2022-02-22 07:26] LABS: ALANINE AMINOTRANSFERASE 14 IU/L (0-55); ALBUMIN 3.2 g/dL (3.5-5.0); ALBUMIN/GLOBULIN RATIO 0.9 (0.8-2.0); ALKALINE PHOSPHATASE 38 IU/L (40-150); ANION GAP 12.2 mmol/L (8-16); BLOOD UREA NITROGEN < 5 mg/dL (7-26); CALCIUM 8.3 mg/dL (8.4-10.2); CARBON DIOXIDE 24 mmol/L (22-29); CHLORIDE 109 mmol/L (98-107); CREATININE, SERUM 0.61 mg/dL (0.57-1.11); EST GLOMERULAR FILTRATION RATE 106 ML/MIN (60-); GLUCOSE 83 mg/dL (74-118); POTASSIUM 3.2 mmol/L (3.5-5.1); SODIUM 142 mmol/L (136-145)
[2022-02-22 07:28] LABS: BUN/CREATININE RATIO 8 (6-25)
[2022-02-22] MEDS: CEFEPIME 1 GM in SODIUM CHLORIDE 0.9% 50ML 50 ML IV SCH (08:34)
[2022-02-22] MEDS: CYANOCOBALAMIN INJ 1,000 MCG/ML VIAL IM SCH (08:34)
[2022-02-22] MEDS: AZATHIOPRINE 50 MG TAB PO SCH (08:35)
[2022-02-22] MEDS: DOCUSATE SODIUM 100 MG CAP PO SCH ×2 (08:35→17:00)
[2022-02-22] MEDS: (Dapagliflozin Propanediol (Farxiga) 10 MG) PO SCH (08:35)
[2022-02-22] MEDS: PREDNISONE 5 MG TAB PO SCH (08:36)
[2022-02-22] MEDS: MULTIVITAMINS/MINERALS TAB PO SCH (08:36)
[2022-02-22] MEDS: IRON SUCROSE 100 MG in SODIUM CHLORIDE 0.9% 100 ML 100 ML IV SCH (10:43)
[2022-02-22] MEDS ORDERED: Morphine 2mg Syringe 2 MG/ML SYR IV PRN (10:45)
[2022-02-22] MEDS: CEFEPIME 2 GM in SODIUM CHLORIDE 0.9% 100 ML IV SCH ×2 (14:00→21:13)
[2022-02-22] MEDS: SODIUM CHLORIDE 0.9% 1000ML 1,000 ML IV SCH (16:30)
[2022-02-23] VITALS (7 sets, daily range): BP systolic 115–125; BP diastolic 73–80
[2022-02-23] MEDS: CEFEPIME 2 GM in SODIUM CHLORIDE 0.9% 100 ML IV SCH ×3 (05:41→21:54)
[2022-02-23] MEDS: METRONIDAZOLE 500MG/NS 100ML 100 ML IV SCH ×3 (05:41→18:10)
[2022-02-23 06:52] LABS: BASOPHILS % 0.7 % (0.0-1.0); EOSINOPHILS # (AUTO) 0.1 (0.0-0.4); HEMATOCRIT 33.8 % (34.2-44.1); HEMOGLOBIN 11.4 g/dL (12.0-16.0); LYMPHOCYTES # (AUTO) 1.8 (1.0-3.2); LYMPHOCYTES % 33.4 % (18.0-39.1); MEAN CORPUSCULAR HGB CONC 33.7 g/dL (31-35); MEAN CORPUSCULAR VOLUME 91.8 fL (81-99); MONOCYTES # (AUTO) 0.4 (0.2-0.8); MONOCYTES % 7.3 % (4.4-11.3); NEUTROPHILS # (AUTO) 3.1 (2.1-6.9); NEUTROPHILS % 56.1 % (38.7-80.0); PLATELET COUNT 205 x10e3/uL (140-360); RED BLOOD COUNT 3.68 x10e6/uL (3.6-5.1); RED CELL DISTRIBUTION WIDTH 13.2 % (11.7-14.4)
[2022-02-23 07:17] LABS: ALBUMIN 3.1 g/dL (3.5-5.0); ANION GAP 8.9 mmol/L (8-16); CALCIUM 8.3 mg/dL (8.4-10.2); CREATININE, SERUM 0.57 mg/dL (0.57-1.11)
[2022-02-23 07:24] LABS: POTASSIUM 2.9 mmol/L (3.5-5.1)
[2022-02-23] MEDS ORDERED: POTASSIUM CHLORIDE 10MEQ/100ML 100 ML IV ONE (09:00)
[2022-02-23] MEDS: (Dapagliflozin Propanediol (Farxiga) 10 MG) PO SCH (09:00)
[2022-02-23] MEDS: DOCUSATE SODIUM 100 MG CAP PO SCH ×2 (09:00→16:23)
[2022-02-23] MEDS: CYANOCOBALAMIN INJ 1,000 MCG/ML VIAL IM SCH (09:07)
[2022-02-23] MEDS: PREDNISONE 5 MG TAB PO SCH (09:08)
[2022-02-23] MEDS: MULTIVITAMINS/MINERALS TAB PO SCH (09:08)
[2022-02-23] MEDS: AZATHIOPRINE 50 MG TAB PO SCH (09:08)
[2022-02-23] MEDS: IRON SUCROSE 100 MG in SODIUM CHLORIDE 0.9% 100 ML 100 ML IV SCH ×2 (09:09→11:08)
[2022-02-23 09:17] LABS: EOSINOPHILS % (MANUAL) 2 % (0-7); LYMPHOCYTES % (MANUAL) 30 % (19-48); MONOCYTES % (MANUAL) 7 % (3.4-9.0); NEUTROPHILS % (MANUAL) 60 % (40-74); PLATELET ESTIMATE ADEQUATE; PLATELET MORPHOLOGY COMMENT NORMAL; RBC MORPHOLOGY COMMENT NORMAL
[2022-02-23] MEDS: POTASSIUM CHLORIDE 10MEQ EA PO SCH (09:52)
[2022-02-23] MEDS: SODIUM CHLORIDE 0.9% 1000ML 1,000 ML IV SCH (16:23)
[2022-02-24] VITALS (7 sets, daily range): BP systolic 112–151; BP diastolic 74–94
[2022-02-24] MEDS: METRONIDAZOLE 500MG/NS 100ML 100 ML IV SCH ×4 (00:35→18:00)
[2022-02-24] MEDS: CEFEPIME 2 GM in SODIUM CHLORIDE 0.9% 100 ML IV SCH ×3 (05:13→22:46)
[2022-02-24 06:02] LABS: BASOPHILS % 0.7 % (0.0-1.0); EOSINOPHILS # (AUTO) 0.1 (0.0-0.4); EOSINOPHILS % 2.3 % (0.0-6.0); HEMATOCRIT 33.4 % (34.2-44.1); HEMOGLOBIN 11.1 g/dL (12.0-16.0); LYMPHOCYTES # (AUTO) 1.8 (1.0-3.2); LYMPHOCYTES % 32.1 % (18.0-39.1); MEAN CORPUSCULAR HEMOGLOBIN 30.5 pg (28-32); MEAN CORPUSCULAR HGB CONC 33.2 g/dL (31-35); MEAN CORPUSCULAR VOLUME 91.8 fL (81-99); MONOCYTES # (AUTO) 0.4 (0.2-0.8); MONOCYTES % 6.7 % (4.4-11.3); NEUTROPHILS # (AUTO) 3.3 (2.1-6.9); NEUTROPHILS % 57.5 % (38.7-80.0); PLATELET COUNT 195 x10e3/uL (140-360); RED BLOOD COUNT 3.64 x10e6/uL (3.6-5.1); RED CELL DISTRIBUTION WIDTH 13.4 % (11.7-14.4)
[2022-02-24 06:20] LABS: ALANINE AMINOTRANSFERASE 14 IU/L (0-55); ALBUMIN 3.1 g/dL (3.5-5.0); ALBUMIN/GLOBULIN RATIO 0.9 (0.8-2.0); ALKALINE PHOSPHATASE 35 IU/L (40-150); ANION GAP 8.2 mmol/L (8-16); BLOOD UREA NITROGEN < 5 mg/dL (7-26); CALCIUM 8.1 mg/dL (8.4-10.2); CARBON DIOXIDE 26 mmol/L (22-29); CHLORIDE 112 mmol/L (98-107); CREATININE, SERUM 0.59 mg/dL (0.57-1.11); EST GLOMERULAR FILTRATION RATE 110 ML/MIN (60-); GLUCOSE 88 mg/dL (74-118); POTASSIUM 3.2 mmol/L (3.5-5.1); SODIUM 143 mmol/L (136-145)
[2022-02-24 06:25] LABS: BUN/CREATININE RATIO 8 (6-25)
[2022-02-24 08:05] LABS: EOSINOPHILS % (MANUAL) 3 % (0-7); LYMPHOCYTES % (MANUAL) 25 % (19-48); MONOCYTES % (MANUAL) 6 % (3.4-9.0); MYELOCYTES % (MANUAL) 2 % (0-0); NEUTROPHILS % (MANUAL) 64 % (40-74); PLATELET ESTIMATE ADEQUATE; PLATELET MORPHOLOGY COMMENT NORMAL; RBC MORPHOLOGY COMMENT NORMAL
[2022-02-24] MEDS: DOCUSATE SODIUM 100 MG CAP PO SCH ×3 (09:00→22:53)
[2022-02-24] MEDS: (Dapagliflozin Propanediol (Farxiga) 10 MG) PO SCH (10:00)
[2022-02-24] MEDS: AZATHIOPRINE 50 MG TAB PO SCH (10:00)
[2022-02-24] MEDS: PREDNISONE 5 MG TAB PO SCH (10:00)
[2022-02-24] MEDS: MULTIVITAMINS/MINERALS TAB PO SCH (10:00)
[2022-02-24] MEDS: CYANOCOBALAMIN INJ 1,000 MCG/ML VIAL IM SCH (10:00)
[2022-02-24] MEDS: POTASSIUM CHLORIDE 10MEQ EA PO SCH (10:00)
[2022-02-24] MEDS: IRON SUCROSE 100 MG in SODIUM CHLORIDE 0.9% 100 ML 100 ML IV SCH (11:16)
[2022-02-24] MEDS ORDERED: SODIUM CHLORIDE 0.9% 250ML 250 ML ONE (11:30)
[2022-02-24] MEDS: SODIUM CHLORIDE 0.9% 1000ML 1,000 ML IV SCH (16:30)
[2022-02-25 00:42] VITALS: BP 146/92
[2022-02-25] MEDS: METRONIDAZOLE 500MG/NS 100ML 100 ML IV SCH ×2 (00:50→05:35)
[2022-02-25 05:04] VITALS: BP 147/88
[2022-02-25] MEDS: CEFEPIME 2 GM in SODIUM CHLORIDE 0.9% 100 ML IV SCH (05:35)
[2022-02-25] MEDS ORDERED: K DUR10 MEQ PO (05:48)
[2022-02-25] MEDS ORDERED: ONDANSETRON ODT4 MG PO (05:48)
[2022-02-25] MEDS ORDERED: ACETAMINOPHEN325 M1 PO (05:48)
[2022-02-25] MEDS ORDERED: CEFEPIME 22 GM/100 M IV (05:48)
[2022-02-25] MEDS ORDERED: COLACE100 MG PO (05:48)
[2022-02-25] MEDS ORDERED: ACETAMINOPHEN/CODEINE 300MG - 30MG TAB PO PRN (07:45)
[2022-02-25] MEDS ORDERED: Acetaminophen/Codeine 300-30MG PO (07:46)
[2022-02-25 08:10] VITALS: BP 138/85
== END 2022-02-25 09:36 | disposition home or self-care (01) | DRG 392 ==
LOC: ER 08:53 → ERHOLD 10:43 → MED/SURG2 12:02
PROVIDERS: ADMIT Internal Medicine; ATTEND Internal Medicine
PROC: 02HV33Z Insertion of Infusion Device into Superior Vena Cava, Percutaneous Approach (ICD-10-PCS; principal; 2022-02-22)
DX: K57.20 Diverticulitis of large intestine with perforation and abscess without bleeding (principal); M32.19 Other organ or system involvement in systemic lupus erythematosus; E11.9 Type 2 diabetes mellitus without complications; K58.9 Irritable bowel syndrome, unspecified; K75.4 Autoimmune hepatitis; E06.3 Autoimmune thyroiditis; F41.9 Anxiety disorder, unspecified; E66.9 Obesity, unspecified; E87.6 Hypokalemia; Z68.31 Body mass index [BMI] 31.0-31.9, adult; Z20.822 Contact with and (suspected) exposure to COVID-19
CPT/HCPCS: 36415; 36569; 71045; 74177; 76700; 80048; 80053; 80076; 81001; 82390; 82607; 82746; 82948; 83540; 83735; 84466; 84702; 85025; 85045; 87040; 94799; 96361; 99284; J0692; J1170; J1756; J2185; J2270; J2405; J3420; J3480; J7030; J7050; J7512; Q9967; U0002